=== PATIENT | female | born 1955 | race American Indian/Alaskan Native ===

== ENCOUNTER 2021-08-14 12:50 | Emergency (ER) | payer SELFPAY ==
[2021-08-14] MEDS ORDERED: ALBUTEROL 2.5 MG/3 ML NEBU IH ONE (13:30)
[2021-08-14] MEDS ORDERED: IPRATROPIUM 0.02% NEBU 2.5 ML IH ONE (13:30)
[2021-08-14] MEDS ORDERED: predniSONE 20 MG TAB PO ONE (13:30)
--- NOTE | 2021-08-14 13:31 | Emergency Department Report ---
ED General Adult HPI - General Chief complaint: Dyspnea/Respdistress Stated complaint: COPD PUI?: No Time Seen by Provider: 08/14/21 12:58 Source: patient, RN notes reviewed, old records reviewed Mode of arrival: Stretcher Limitations: No Limitations - History of Present Illness Initial comments: EMS documentation not available at time of chart dictation The patient is a 66-year-old female. She reports a history of sarcoid and hypertension. She has a local supervisor public message service, but cannot recall their name. She is currently maintained on Trelegy as a maintenance pulmonary medication, but was previously on Breo. Breo was discontinued secondary to insurance reasons. She presents to the ER with a complaint of cough, wheezing, clear mucus production and shortness of breath. She was given albuterol prior to my evaluation by EMS, and reports 60% improvement in symptoms. Patient denies travel, surgery, immobilization, leg pain, leg swelling, DVT/PE risk factors. The patient denies physical pain. She denies Covid exposure. She denies new onset loss of taste and smell. She currently denies headache, neck pain, chest pain, abdominal pain, vomiting, diarrhea and urinary symptoms. She reports that she feels mostly improved for discharge. -: Gradual, hour(s), days(s) Consistency: constant Improves with: medication, rest Worsens with: movement - Related Data Home Medications Medication Instructions Recorded Confirmed Last Taken ALBUTEROL NEB's [Proventil 0.083%] 2.5 mg IH TID PRN 11/06/13 11/06/13 11/06/13 Albuterol Mdi (or & Nicu Only) 2 puff INHALATION PRN PRN 11/06/13 11/06/13 11/06/13 [ProAir HFA Inhaler] Spironolactone 50 mg PO DAILY 11/06/13 11/06/13 11/06/13 amLODIPine [Norvasc] 10 mg PO DAILY 11/06/13 11/06/13 11/06/13 Previous Rx's Medication Instructions Recorded Last Taken Type predniSONE [Deltasone] 20 mg PO QDAY #5 tab 11/07/13 Unknown Rx Albuterol Sulfate [Albuterol 0.63% 0.63 mg IH Q4HR PRN #2 ml 08/14/21 Unknown Rx NEBS] Albuterol Sulfate [Proair 90 mcg IH Q4HR PRN #2 aer.pow.ba 08/14/21 Unknown Rx Respiclick] Benzonatate [Tessalon Perles] 100 mg PO Q8HR PRN #30 capsule 08/14/21 Unknown Rx DOXYCYCLINE Hyclate [Vibramycin] 100 mg PO Q12HR #10 capsule 08/14/21 Unknown Rx Ipratropium (Nf) [Atrovent] 2 puff IH Q6HR PRN #1 inha 08/14/21 Unknown Rx predniSONE [Deltasone] 40 mg PO QDAY #8 tab 08/14/21 Unknown Rx Allergies Allergy/AdvReac Type Severity Reaction Status Date / Time No Known Allergies Allergy Verified 11/06/13 21:47 ED Review of Systems ROS: Stated complaint: COPD Other details as noted in HPI Constitutional: denies: fever Eyes: denies: eye discharge ENT: congestion Respiratory: cough, shortness of breath, SOB with exertion, SOB at rest Cardiovascular: denies: chest pain Gastrointestinal: denies: abdominal pain, nausea, vomiting Genitourinary: denies: dysuria Musculoskeletal: denies: back pain Neurological: weakness Psychiatric: anxiety Hematological/Lymphatic: denies: easy bleeding ED Past Medical Hx - Past Medical History Hx Hypertension: Yes Hx Asthma: Yes - Social History Smoking Status: Never Smoker Substance Use Type: None - Medications Home Medications: Home Medications Medication Instructions Recorded Confirmed Last Taken Type ALBUTEROL NEB's [Proventil 0.083%] 2.5 mg IH TID PRN 11/06/13 11/06/13 11/06/13 History Albuterol Mdi (or & Nicu Only) 2 puff INHALATION PRN PRN 11/06/13 11/06/13 11/06/13 History [ProAir HFA Inhaler] Spironolactone 50 mg PO DAILY 11/06/13 11/06/13 11/06/13 History amLODIPine [Norvasc] 10 mg PO DAILY 11/06/13 11/06/13 11/06/13 History predniSONE [Deltasone] 20 mg PO QDAY #5 tab 11/07/13 Unknown Rx Albuterol Sulfate [Albuterol 0.63% 0.63 mg IH Q4HR PRN #2 ml 08/14/21 Unknown Rx NEBS] Albuterol Sulfate [Proair 90 mcg IH Q4HR PRN #2 aer.pow.ba 08/14/21 Unknown Rx Respiclick] Benzonatate [Tessalon Perles] 100 mg PO Q8HR PRN #30 capsule 08/14/21 Unknown Rx DOXYCYCLINE Hyclate [Vibramycin] 100 mg PO Q12HR #10 capsule 08/14/21 Unknown Rx Ipratropium (Nf) [Atrovent] 2 puff IH Q6HR PRN #1 inha 08/14/21 Unknown Rx predniSONE [Deltasone] 40 mg PO QDAY #8 tab 08/14/21 Unknown Rx ED Physical Exam - General Limitations: No Limitations General appearance: alert, anxious - Head Head exam: Present: atraumatic, normocephalic - Eye Eye exam: Present: normal appearance, EOMI. Absent: nystagmus - ENT ENT exam: Present: normal exam, normal orophraynx, mucous membranes moist, normal external ear exam - Neck Neck exam: Present: normal inspection, full ROM. Absent: tenderness, meningismus - Respiratory Respiratory exam: Present: respiratory distress, decreased breath sounds. Absent: wheezes, rales, rhonchi, stridor - Cardiovascular Cardiovascular Exam: Present: normal rhythm, tachycardia. Absent: bradycardia, irregular rhythm, normal heart sounds, systolic murmur, diastolic murmur, rubs, gallop - GI/Abdominal GI/Abdominal exam: Present: soft. Absent: distended, tenderness, guarding, rigid, pulsatile mass - Extremities Exam Extremities exam: Present: normal inspection, full ROM, other (2+ pulses noted in the bilateral upper and lower extremities. There is no palpable cord. negative Homans sign. Muscular compartments are soft. The pelvis is stable.). Absent: pedal edema, calf tenderness - Back Exam Back exam: Present: normal inspection, full ROM. Absent: tenderness, CVA tenderness (R), CVA tenderness (L), paraspinal tenderness, vertebral tenderness - Neurological Exam Neurological exam: Present: alert, oriented X3, normal gait, other (No facial droop. Tongue midline. Extraocular movements intact bilaterally. Facial sensation intact to light touch in V1, V2, V3 distribution bilaterally. 5 and a 5 strength in 4 extremities. Sensation intact to light touch in 4 extremities.). Absent: motor sensory deficit - Psychiatric Psychiatric exam: Present: normal affect, normal mood - Skin Skin exam: Present: warm, dry, intact, normal color. Absent: rash ED Course Vital Signs 08/14/21 08/14/21 12:55 13:58 Pulse Rate 129 H Pulse Rate [ 95 H Bilateral Throughout] Respiratory 20 Rate Respiratory 20 Rate [Bilateral Throughout] Blood Pressure 155/76 [Right] O2 Sat by Pulse 96 Oximetry - Reevaluation(s) Reevaluation #1: 08/14/21 14:05 Differential diagnosis, including but not limited to: Bronchitis, emphysema, COPD exacerbation, sarcoid exacerbation Assessment and plan: 66-year-old female with reported history of sarcoid, who is not home oxygen dependent, who denies travel, surgery, immobilization, DVT/PE risk factors, who was previously on a maintenance medication which worked well for her, but secondary to insurance reasons, has had to switch over to a suboptimal maintenance medication, now presenting with painless cough and shortness of breath, most likely COPD/sarcoid exacerbation. Extensive discussion had with patient. Medically speaking, based off of the history and physical, I do not feel that laboratory studies would yield any significant value, I discussed this with the patient, and she would prefer to not have laboratory studies obtained. In addition, I did offer the patient admission, although I do not think it is necessary, given her improvement in symptoms. Through shared decision making, and in consideration of patient's preferences, we agreed to not admit the patient. Specifically discussed risk, benefits and alternatives of admission versus discharge. Patient given trial of ambulation by myself, O2 sat stayed between 90 and 94%. At rest, O2 sat increases to 99%. Patient feels like she is "just about ready to go", but is requesting an additional breathing treatment. We will give her steroids, and albuterol/Atrovent. She is somewhat tachycardic, this is likely secondary to prior albuterol administration. She is going to follow-up with her outpatient supervisor public message service, who she states will likely provide her with outpatient Amanda Wagner lpta samples. EKG reviewed and appreciated, essentially unremarkable except for tachycardia. Chest x-ray unremarkable. 08/14/21 14:32 Patient reexamined. Lung sounds are clear to auscultation bilaterally. She feels much improved. O2 sat 97, 98%. She states that she feels markedly improved. She is going to follow-up with her supervisor public message service this afternoon. Temperature is 98 F orally. Heart rate 98 to 102 bpm. Return precautions reviewed. All questions answered. ED Medical Decision Making - Lab Data Vital Signs 08/14/21 08/14/21 12:55 13:58 Pulse Rate 129 H Pulse Rate [ 95 H Bilateral Throughout] Respiratory 20 Rate Respiratory 20 Rate [Bilateral Throughout] Blood Pressure 155/76 [Right] O2 Sat by Pulse 96 Oximetry - EKG Data -: EKG Interpreted by Ct EKG shows normal: sinus rhythm Rate: tachycardia - EKG Data 08/14/21 14:04 EKG is interpreted at 13: 11 Sinus rhythm, tachycardia, 111 bpm. Normal axis, QTC 43 ms. High left ventricu lar voltage, and motion artifact. This is an abnormal EKG.. This is not a STEMI. - Radiology Data Radiology results: pending, report reviewed, image reviewed CHEST 2 VIEWS INDICATION / CLINICAL INFORMATION: cough dyspnea sarcoid. COMPARISON: Chest x-ray 10/23/2013 FINDINGS: SUPPORT DEVICES: None. HEART / MEDIASTINUM: No significant abnormality. LUNGS / PLEURA: No significant pulmonary or pleural abnormality. No pneumothorax. ADDITIONAL FINDINGS: No significant additional findings. IMPRESSION: 1. No acute findings. Signer Name: Adam Barney MD Signed: 08/14/2021 12:47 PM Workstation Name: [id number] Critical care attestation.: If time is entered above; I have spent that time in minutes in the direct care of this critically ill patient, excluding procedure time. ED Disposition Clinical Impression: Sarcoidosis, Bronchitis Disposition: 01 HOME / SELF CARE / HOMELESS Is pt being admited?: No Does the pt Need Aspirin: No Condition: Good Instructions: Sarcoidosis, Acute Bronchitis, Adult, Chronic Bronchitis (ED) Additional Instructions: Please continue the breathing medications as needed and directed. Please con tinue outpatient maintenance medication, Trelegy. Please follow-up with your outpatient supervisor public message service within the next week for repeat evaluation. Albuterol should be your rescue inhaler of choice. Use the albuterol as needed/directed for cough, wheezing and shortness of breath. Take antibiotics as directed, and steroids as directed. Use the Tessalon Perles as needed for cough. Please follow-up with your outpatient primary care doctor within the next 2 weeks. Please return to the emergency room right away with new pain, worsened pain, migration of pain, projectile vomiting, change in mental status, confusion, inability tolerate liquid feeds, new, worsened or different symptoms not present on the initial emergency room evaluation Prescriptions: Albuterol Sulfate [Albuterol 0.63% NEBS] 0.63 mg IH Q4HR PRN #2 ml PRN Reason: Wheezing Ipratropium (Nf) [Atrovent] 2 puff IH Q6HR PRN #1 inha PRN Reason: Wheezing predniSONE [Deltasone] 40 mg PO QDAY #8 tab Albuterol Sulfate [Proair Respiclick] 90 mcg IH Q4HR PRN #2 aer.pow.ba PRN Reason: Wheezing Benzonatate [Tessalon Perles] 100 mg PO Q8HR PRN #30 capsule PRN Reason: Cough DOXYCYCLINE Hyclate [Vibramycin] 100 mg PO Q12HR #10 capsule Referrals: ERIC JEAN-BAPTISTE MD [Staff Physician] - 3-5 Days BASSAM JUAN MD [Staff Physician] - 3-5 Days Forms: Work/School Release Form(ED)
--- NOTE | 2021-08-14 13:51 | XRay Report ---
CHEST 2 VIEWS INDICATION / CLINICAL INFORMATION: cough dyspnea sarcoid. COMPARISON: Chest x-ray 10/23/2013 FINDINGS: SUPPORT DEVICES: None. HEART / MEDIASTINUM: No significant abnormality. LUNGS / PLEURA: No significant pulmonary or pleural abnormality. No pneumothorax. ADDITIONAL FINDINGS: No significant additional findings. IMPRESSION: 1. No acute findings. Signer Name: Adam Barney MD Signed: 08/14/2021 1:47 PM Workstation Name: [id number]
[2021-08-14 14:44] VITALS: BP 135/87
--- NOTE | 2021-08-15 18:33 | Electrocardiograph Report ---
[facility] Test Date: 2021-08-14 Test Time: 13:11:13 Pat Name: UMANG EGAN Department: Room: Gender: F [employer]orter: EDWARD : 1955 Requested By: MARQUISE MARIN Order Number: [id number] Reading MD: Justice Bell Measurements Intervals [place] Rate: 111 P: 86 [place]: 122 QRS: 60 QRSD: 83 T: 49 QT: 356 QTc: 483 Interpretive Statements Sinus tachycardia Atrial premature complexes No previous ECG available for comparison Electronically Signed On 08-15-2021 18:33:27 EST by Justice Bell
== END 2021-08-14 14:50 | disposition home or self-care (01) ==
LOC: ED 12:50
DX: J40 Bronchitis, not specified as acute or chronic (principal); D86.9 Sarcoidosis, unspecified; I10 Essential (primary) hypertension
CPT/HCPCS: 71046; 93005; 94644; 99284; J7512

== ENCOUNTER 2022-04-10 23:39 | Emergency (ER) | payer MEDICARE ==
[2022-04-11] MEDS ORDERED: LEVALBUTEROL 0.63 MG/3 ML NEBU IH ONE ×2 (00:33→01:52)
--- NOTE | 2022-04-11 00:51 | Emergency Department Report ---
ED General Adult HPI - General Chief complaint: Dyspnea/Respdistress Stated complaint: SOB/CHEST PAIN Time Seen by Provider: 04/11/22 00:28 Source: patient, EMS Mode of arrival: Stretcher Limitations: No Limitations - History of Present Illness Initial comments: This is a 66-year-old female with medical history of hypertension sarcoidosis and also COPD came in today with concerns of short of breath that she started today and woke her up from sleep. According patient she also has short period of chest discomfort. Patient denies any other symptoms such as fever chill night sweat dizziness blurred vision lightheadedness headache tinnitus ear pain runny nose sore throat palpitation cough abdominal pain nausea vomiting diarrhea constipation dysuria myalgia arthralgia new rash heat or cold intolerance. Patient denies anything makes the short of breath or chest pain worsening such as exertion. - Related Data Home Medications Medication Instructions Recorded Confirmed Last Taken ALBUTEROL NEB's [Proventil 0.083%] 2.5 mg IH TID PRN 11/06/13 11/06/13 11/06/13 Albuterol Mdi (or & Nicu Only) 2 puff INHALATION PRN PRN 11/06/13 11/06/13 11/06/13 [ProAir HFA Inhaler] Spironolactone 50 mg PO DAILY 11/06/13 11/06/13 11/06/13 amLODIPine [Norvasc] 10 mg PO DAILY 11/06/13 11/06/13 11/06/13 Previous Rx's Medication Instructions Recorded Last Taken Type predniSONE [Deltasone] 20 mg PO QDAY #5 tab 11/07/13 Unknown Rx Albuterol Sulfate [Albuterol 0.63% 0.63 mg IH Q4HR PRN #2 ml 08/14/21 Unknown Rx NEBS] Albuterol Sulfate [Proair 90 mcg IH Q4HR PRN #2 aer.pow.ba 08/14/21 Unknown Rx Respiclick] Benzonatate [Tessalon Perles] 100 mg PO Q8HR PRN #30 capsule 08/14/21 Unknown Rx DOXYCYCLINE Hyclate [Vibramycin] 100 mg PO Q12HR #10 capsule 08/14/21 Unknown Rx Ipratropium (Nf) [Atrovent] 2 puff IH Q6HR PRN #1 inha 08/14/21 Unknown Rx predniSONE [Deltasone] 40 mg PO QDAY #8 tab 08/14/21 Unknown Rx levoFLOXacin [Levaquin] 750 mg PO QDAY 5 Days #5 tablet 04/11/22 Unknown Rx Allergies Allergy/AdvReac Type Severity Reaction Status Date / Time No Known Allergies Allergy Verified 11/06/13 21:47 ED Review of Systems ROS: Stated complaint: SOB/CHEST PAIN Other details as noted in HPI Comment: All other systems reviewed and negative Constitutional: no symptoms reported, see HPI Eyes: as per HPI ENT: as per HPI Respiratory: shortness of breath. denies: cough, orthopnea, SOB with exertion, SOB at rest, wheezing Cardiovascular: chest pain. denies: palpitations, dyspnea on exertion, orthopnea, edema, syncope, paroxysmal nocturnal dyspnea Endocrine: no symptoms reported, see HPI Gastrointestinal: as per HPI Genitourinary: as per HPI Musculoskeletal: as per HPI Skin: as per HPI Neurological: as per HPI Psychiatric: as per HPI Hematological/Lymphatic: as per HPI ED Past Medical Hx - Past Medical History Previous Medical History?: Yes Hx Hypertension: Yes Hx Asthma: Yes Hx COPD: Yes - Surgical History Past Surgical History?: No - Social History Smoking Status: Never Smoker Substance Use Type: None - Medications Home Medications: Home Medications Medication Instructions Recorded Confirmed Last Taken Type ALBUTEROL NEB's [Proventil 0.083%] 2.5 mg IH TID PRN 11/06/13 11/06/13 11/06/13 History Albuterol Mdi (or & Nicu Only) 2 puff INHALATION PRN PRN 11/06/13 11/06/13 11/06/13 History [ProAir HFA Inhaler] Spironolactone 50 mg PO DAILY 11/06/13 11/06/13 11/06/13 History amLODIPine [Norvasc] 10 mg PO DAILY 11/06/13 11/06/13 11/06/13 History predniSONE [Deltasone] 20 mg PO QDAY #5 tab 11/07/13 Unknown Rx Albuterol Sulfate [Albuterol 0.63% 0.63 mg IH Q4HR PRN #2 ml 08/14/21 Unknown Rx NEBS] Albuterol Sulfate [Proair 90 mcg IH Q4HR PRN #2 aer.pow.ba 08/14/21 Unknown Rx Respiclick] Benzonatate [Tessalon Perles] 100 mg PO Q8HR PRN #30 capsule 08/14/21 Unknown Rx DOXYCYCLINE Hyclate [Vibramycin] 100 mg PO Q12HR #10 capsule 08/14/21 Unknown Rx Ipratropium (Nf) [Atrovent] 2 puff IH Q6HR PRN #1 inha 08/14/21 Unknown Rx predniSONE [Deltasone] 40 mg PO QDAY #8 tab 08/14/21 Unknown Rx levoFLOXacin [Levaquin] 750 mg PO QDAY 5 Days #5 tablet 04/11/22 Unknown Rx ED Physical Exam - General Limitations: No Limitations General appearance: alert, in no apparent distress - Head Head exam: Present: atraumatic, normocephalic, normal inspection - Eye Eye exam: Present: normal appearance, PERRL, EOMI Pupils: Present: normal accommodation - ENT ENT exam: Present: normal exam - Neck Neck exam: Present: normal inspection, full ROM - Respiratory Respiratory exam: Present: normal lung sounds bilaterally. Absent: respiratory distress, wheezes, rales, rhonchi, stridor, accessory muscle use, decreased breath sounds, prolonged expiratory - Cardiovascular Cardiovascular Exam: Present: regular rate, normal rhythm, normal heart sounds - GI/Abdominal GI/Abdominal exam: Present: soft - Extremities Exam Extremities exam: Present: normal inspection, full ROM, normal capillary refill - Back Exam Back exam: Present: normal inspection, full ROM - Neurological Exam Neurological exam: Present: alert, oriented X3, CN II-XII intact - Psychiatric Psychiatric exam: Present: normal affect, normal mood - Skin Skin exam: Present: normal color ED Course Vital Signs 04/11/22 04/11/22 00:20 01:26 Temperature 98.3 F Pulse Rate 94 H Pulse Rate [ 77 Throughout] Respiratory 13 Rate Respiratory 14 Rate [ Throughout] Blood Pressure 99/65 [Left] O2 Sat by Pulse 94 Oximetry - Reevaluation(s) Reevaluation #1: 04/11/22 03:49 Subjective also objectively patient has significantly improved. ED Medical Decision Making - Lab Data Result diagrams: 04/11/22 00:41 04/11/22 00:41 Critical care attestation.: If time is entered above; I have spent that time in minutes in the direct care of this critically ill patient, excluding procedure time. ED Disposition Clinical Impression: COPD exacerbation Disposition: 01 HOME / SELF CARE / HOMELESS Is pt being admited?: No Does the pt Need Aspirin: No Condition: Stable Instructions: Chronic Obstructive Pulmonary Disease (ED), Chronic Obstructive Pulmonary Disease Exacerbation, [id number] Additional Instructions: Take antibiotics and also prednisone as prescribed for you COPD exasperation. Make a follow-up appoint with your primary care provider to be seen within 3 to 5 days for further outpatient evaluation. Prescriptions: levoFLOXacin [Levaquin] 750 mg PO QDAY 5 Days #5 tablet Time of Disposition: 03:49
--- NOTE | 2022-04-11 01:01 | XRay Report ---
CHEST 1 VIEW INDICATION / CLINICAL INFORMATION: SOB. COMPARISON: Chest x-ray 08/14/2021 FINDINGS: SUPPORT DEVICES: None. HEART / MEDIASTINUM: Heart size is within normal limits. Mediastinal contour demonstrates no signific ant abnormality. LUNGS / PLEURA: Lungs are clear for degree of inspiration and technique utilized. BONES: No significant osseous abnormality. ADDITIONAL FINDINGS: No significant additional findings. IMPRESSION: 1. No active cardiopulmonary disease. Signer Name: Cortez Suárez II, MD Signed: 04/11/2022 12:57 AM Workstation Name: [id number]
[2022-04-11 01:02] LABS: Hematocrit 37.4 % (30.3-42.9); Hemoglobin 12.9 gm/dl (10.1-14.3); Mean Corpuscular HGB Conc 35 % (30-34); Mean Corpuscular Volume 93 fl (79-97); Platelet Count 294 K/mm3 (140-440); Red Blood Count 4.04 M/mm3 (3.65-5.03); Red Cell Distribution Width 14.1 % (13.2-15.2)
[2022-04-11 01:31] LABS: Alanine Aminotransferase 20 units/L (7-56); Albumin 3.9 g/dL (3.9-5); BUN/Creatinine Ratio 18; Blood Urea Nitrogen 18 mg/dL (7-17); Hemolysis Index 1
[2022-04-11] MEDS ORDERED: IPRATROPIUM/ALBUTEROL SULFATE 3 ML AMPUL.NEB IH ONE ×2 (01:51→01:52)
[2022-04-11] MEDS ORDERED: methylPREDNISolone Sod Succinate 125 MG/2 ML INJ IV ONE (01:51)
[2022-04-11 05:54] VITALS: BP 133/80
--- NOTE | 2022-04-12 13:42 | Electrocardiograph Report ---
[facility] Test Date: 2022-04-11 Test Time: 03:56:59 Pat Name: UMANG EGAN Department: Room: Gender: F Psychiatric Arnp: NUNO : 1955 Requested By: SELVIN LAEXIS Order Number: [id number] Reading MD: Justice Bell Measurements Intervals [place] Rate: 79 P: 71 SD: 130 QRS: 27 QRSD: 86 T: 41 QT: 435 QTc: 486 Interpretive Statements Sinus rhythm Atrial premature complexes Compared to ECG 08/14/2021 13:11:13 Sinus rate has slowed Electronically Signed On 04-12-2022 13:41:59 EDT by Justice Bell
== END 2022-04-11 05:15 | disposition home or self-care (01) ==
LOC: ED 23:39
DX: J44.9 Chronic obstructive pulmonary disease, unspecified (principal); I10 Essential (primary) hypertension
CPT/HCPCS: 36415; 71045; 80053; 83735; 83880; 84484; 85027; 85379; 93005; 94640; 96365; 96375; 99284; J1956; J2930; 94644